=== PATIENT | male | born 1935 | race Caucasian/White ===

== ENCOUNTER 2020-08-30 13:02 | Inpatient (IN) | payer OTHER ==
[~2020-08-30] VITALS: Ht 182.9 cm; Wt 95.3 kg
[2020-08-30] MEDS ORDERED: SODIUM CHLORIDE 0.9% 1,000 ML IV ONE (13:45)
[2020-08-30] MEDS ORDERED: cefTRIAXone 1GM/50ML D5W 50 ML IV ONE (15:45)
[2020-08-30] MEDS ORDERED: AZITHROMYCIN 500MG/ 250ML 250 ML IV ONE (15:45)
[2020-08-30 15:49] LABS: Basophils # (auto) 0 10 ^3/uL (0-0.2); Basophils % (auto) 0.2 % (0.0-2.0); Eosinophils # (auto) 0 10 ^3/uL (0-0.8); Hematocrit 39.8 % (41.0-53.0); Hemoglobin 13.5 g/dL (13.5-17.5); Lymphocytes # (auto) 1.5 10 ^3/uL (0.4-5.4); Lymphocytes % (auto) 33.3 % (10.0-50.0); Mean Corpuscular Hemoglobin 30.7 pg (28.0-32.0); Mean Corpuscular Volume 90.2 fL (80.0-100.0); Monocytes # (auto) 0.3 10 ^3/uL (0-1.3); Monocytes % (auto) 6.6 % (0.0-12.0); Neutrophils # (auto) 2.7 10 ^3/uL (1.6-8.6); Neutrophils % (auto) 59.9 % (37.0-80.0); Nucleated Red Blood Cells % 0.1 %; Platelet Count (auto) 126 10^3/uL (140-450); Red Blood Cells 4.41 10^6/uL (4.5-5.90); Red Cell Distribution Width 13.9 % (11.8-14.3); White Blood Cell 4.4 10^3/uL (4.4-10.8)
[2020-08-30 16:10] LABS: Chloride 98 mmol/L (98-107); Sodium 134 mmol/L (136-145)
[2020-08-30 16:14] LABS: Alanine Aminotransferase 43 U/L (16-61); Albumin 2.9 g/dL (3.4-5.0); Anion Gap 7 (5-15); BUN/Creatinine Ratio 17.9; Blood Urea Nitrogen 21 mg/dL (7-18); Calcium 7.7 mg/dL (8.5-10.1); Carbon Dioxide 29 mmol/L (21-32); GFR African American 77 mL/min; GFR Non-African American 63 mL/min; Glucose 101 mg/dL (74-106)
[2020-08-30 16:29] LABS: Alkaline Phosphatase 63 U/L (45-117); Aspartate Aminotransferase 47 U/L (15-37); Bilirubin, Total 0.6 mg/dL (0.2-1.0); Total Protein 6.6 g/dL (6.4-8.2)
[2020-08-30] MEDS ORDERED: POTASSIUM EFFERVESENT TAB 25 MEQ PO ONE ×2 (17:15→21:30)
[2020-08-30] MEDS ORDERED: NITROGLYCERIN 0.4 MG SL TAB SL PRN (19:15)
[2020-08-30] MEDS ORDERED: MORPHINE SULF INJ 2 MG/ML SYRINGE 1ML IV PRN ×2 (19:15→19:45)
[2020-08-30] MEDS ORDERED: SODIUM CHLORIDE 0.9% 1,000 ML IV SCH (19:45)
[2020-08-30] MEDS ORDERED: LABETALOL HCL 5 MG/ML ML 20ML VIAL IV PRN (19:45)
[2020-08-30] MEDS: SODIUM CHLORIDE 0.9% 1,000 ML IV SCH (19:45)
[2020-08-30] MEDS ORDERED: ONDANSETRON HCL 4 MG/2 ML VIAL IV PRN (19:45)
[2020-08-30] MEDS ORDERED: ACETAMINOPHEN 500 MG TAB PO PRN (19:45)
[2020-08-30] MEDS ORDERED: LACTULOSE 20Gm/30ML SOLN PO PRN (19:45)
[2020-08-30] MEDS ORDERED: traMADol HCL 50 MG TAB PO PRN (19:45)
[2020-08-30] MEDS: FAMOTIDINE 20 MG TAB PO SCH (22:04)
[2020-08-30] MEDS: BUDESONIDE (INHALATION) 180 MCG IH IN SCH (22:28)
[2020-08-30] MEDS: ALBUTEROL SULF HFA 90MCG INH 200DOSE IN SCH (22:28)
[2020-08-30 23:20] VITALS: BP 158/83
[2020-08-30 23:20] LABS: Urine Bacteria NONE SEEN /hpf (None Seen); Urine Blood Negative /uL (Negative); Urine Mucus FEW (None Seen); Urine Specific Gravity 1.022 (1.001-1.035); Urine WBC 2 /hpf (0 - 3)
[2020-08-31] MEDS: ALBUTEROL SULF HFA 90MCG INH 200DOSE IN SCH ×3 (06:00→22:15)
--- NOTE | 2020-08-31 08:20 | NUR ---
Telemetry admit from ER SARINADAVID admitted to Telemetry unit after SBAR received. Patient oriented to VINICIO HASTINGS,RN primary RN,[facility] unit, 244room,4 bed, and unit policies regarding patient care and visiting hours. Patient now on continuous telemetry monitoring, tele box #[id number] and telemetry reading on arrival to unit is SR 80's. Patient placed on bedside oxygen, weighed by bedscale and encouraged to call if they need something. All questions and concerns addressed, patient verbalized understanding. Note:
[2020-08-31 09:00] VITALS: BP 137/75
--- NOTE | 2020-08-31 09:00 | NUR ---
Patient stated he takes blood pressure medication but does not know name or dose, per patient he has noone who could bring in home meds.
[2020-08-31] MEDS ORDERED: ENOXAPARIN SOD 40 MG/0.4 ML SYRINGE SC SCH (10:00)
[2020-08-31] MEDS: BUDESONIDE (INHALATION) 180 MCG IH IN SCH ×3 (10:03→22:15)
[2020-08-31] MEDS: SODIUM CHLORIDE 0.9% 1,000 ML IV SCH (10:11)
[2020-08-31] MEDS: DexAMETHasone SOD PHOS 10MG/1ML VIAL INJ IV SCH (10:14)
[2020-08-31] MEDS: ENOXAPARIN SOD 40 MG/0.4 ML SYRINGE SC SCH (10:14)
[2020-08-31] MEDS: ASCORBIC ACID 1,000 MG TAB PO SCH (10:15)
[2020-08-31] MEDS: ZINC SULFATE 220mg CAP or TAB PO SCH (10:15)
[2020-08-31] MEDS: CHOLECALCIFEROL (VITD3) 2,000 UNIT CAP PO SCH (10:15)
[2020-08-31] MEDS: ASPirin 81 mg TAB PO SCH (10:15)
[2020-08-31 11:47] LABS: Albumin 2.6 g/dL (3.4-5.0); Calcium 7.8 mg/dL (8.5-10.1); Potassium 3.5 mmol/L (3.5-5.1)
[2020-08-31 11:52] LABS: BUN/Creatinine Ratio 18.1; Bilirubin, Total 0.9 mg/dL (0.2-1.0)
[2020-08-31] MEDS: levoFLOXacin 500MG 100 ML IV SCH (12:00)
[2020-08-31] MEDS ORDERED: THIAMINE HCL 100 MG TAB PO ONE (12:45)
[2020-08-31 12:51] VITALS: BP 137/77
[2020-08-31 16:44] VITALS: BP 157/81
[2020-08-31] MEDS ORDERED: REMDESIVIR 200 MG in NS 210ml LOADING DOSE ADULT IV ONE (18:00)
--- NOTE | 2020-08-31 18:40 | NUR ---
PRE-REMDESIVIR V/S 156/87 B/P 77HR 97% 97.8 TEMP 17 RR
--- NOTE | 2020-08-31 18:55 | NUR ---
REMDESIVIR V/S 146/94 B/P 83HR 96% 98.0 TEMP 17 RR NO S/S OF DISTRESS NOTED
--- NOTE | 2020-08-31 19:00 | NUR ---
REMDESIVIR IS STILL RUNNING POST V/S ENDORSED TO YAKOV BOLES
--- NOTE | 2020-08-31 21:26 | NUR ---
PT RINSED OUT HIS MOUTH POST PULMICORT Addendum: 08/31/20 at 2200 by PAULINA FARIAS RT Amended: Links added.
[2020-08-31 22:00] VITALS: BP 157/85
[2020-08-31] MEDS ORDERED: ASCORBIC ACID 500 MG TAB PO SCH (22:00)
[2020-08-31] MEDS: FAMOTIDINE 20 MG TAB PO SCH (22:40)
[2020-09-01 05:00] VITALS: BP 157/81
[2020-09-01] MEDS: BUDESONIDE (INHALATION) 180 MCG IH IN SCH ×3 (06:45→21:32)
[2020-09-01] MEDS: ALBUTEROL SULF HFA 90MCG INH 200DOSE IN SCH ×3 (06:45→21:32)
[2020-09-01 07:27] LABS: Potassium 3.6 mmol/L (3.5-5.1)
[2020-09-01 07:45] LABS: Albumin 2.6 g/dL (3.4-5.0); BUN/Creatinine Ratio 19.4; Bilirubin, Total 0.6 mg/dL (0.2-1.0); Calcium 8.1 mg/dL (8.5-10.1); Total Protein 6.5 g/dL (6.4-8.2)
[2020-09-01 09:00] VITALS: BP 155/85
[2020-09-01] MEDS ORDERED: LOSA-39 PO (09:32)
[2020-09-01] MEDS ORDERED: METO-159 PO (09:32)
[2020-09-01] MEDS ORDERED: HYDR25TA4 PO (09:32)
[2020-09-01] MEDS ORDERED: NICA30CA PO (09:32)
[2020-09-01] MEDS: levoFLOXacin 500MG 100 ML IV SCH (09:57)
[2020-09-01] MEDS: ASPirin 81 mg TAB PO SCH (09:58)
[2020-09-01] MEDS: ENOXAPARIN SOD 40 MG/0.4 ML SYRINGE SC SCH (09:59)
[2020-09-01] MEDS: ZINC SULFATE 220mg CAP or TAB PO SCH (09:59)
[2020-09-01] MEDS: CHOLECALCIFEROL (VITD3) 2,000 UNIT CAP PO SCH (09:59)
[2020-09-01] MEDS: DexAMETHasone SOD PHOS 10MG/1ML VIAL INJ IV SCH (09:59)
[2020-09-01] MEDS: ASCORBIC ACID 1,000 MG TAB PO SCH (09:59)
[2020-09-01] MEDS ORDERED: THIAMINE HCL 100 MG TAB PO SCH (10:00)
[2020-09-01] MEDS ORDERED: LOSARTAN POTASSIUM 50 MG TAB PO ONE (11:15)
[2020-09-01] MEDS ORDERED: METOPROLOL SUCCINATE XL 50 MG TAB PO ONE (11:15)
[2020-09-01 13:00] VITALS: BP 142/90
[2020-09-01 17:00] VITALS: BP 142/77
[2020-09-01] MEDS ORDERED: REMDESIVIR 100mg in NS 230ml DAILYx4DAYS (NO VENT) IV SCH (17:00)
--- NOTE | 2020-09-01 17:26 | NUR ---
REMDESIVIR VITALS 137/85 B/P 75 HR 96% 97.9 TEMP 20 RR
--- NOTE | 2020-09-01 17:41 | NUR ---
REMDESIVIR VITALS 83 HR 95% 150/80 TEMP 97.9 18 RR NO S/S OF DISTRESS NOTED
--- NOTE | 2020-09-01 18:50 | NUR ---
POST REMDESIVIR VITALS 154/8 95% 84HR 18 RR TEMP 98.0 NO S/S OF DISTRESS NOTED
--- NOTE | 2020-09-01 19:30 | NUR ---
Opening Shift Note Assumed care of patient, awake and alert. No S/S of distress/SOB or pain. Instructed on POC and to call for assist PRN, will continue to monitor for changes Q1hr and PRN.
--- NOTE | 2020-09-01 19:51 | NUR ---
1 hour post remdesivir 144/69 bp hr 87 95% 17 rr 98.1 temp no S/S of distress noted.
[2020-09-01 22:00] VITALS: BP 152/83
[2020-09-01] MEDS: FAMOTIDINE 20 MG TAB PO SCH (22:00)
[2020-09-02 05:00] VITALS: BP 179/93
[2020-09-02] MEDS: ALBUTEROL SULF HFA 90MCG INH 200DOSE IN SCH (07:05)
[2020-09-02] MEDS: BUDESONIDE (INHALATION) 180 MCG IH IN SCH (07:05)
[2020-09-02 08:00] LABS: Potassium 4.2 mmol/L (3.5-5.1)
[2020-09-02 08:08] LABS: Albumin 2.7 g/dL (3.4-5.0); BUN/Creatinine Ratio 21.8; Bilirubin, Total 0.6 mg/dL (0.2-1.0); Calcium 8.3 mg/dL (8.5-10.1); Total Protein 6.2 g/dL (6.4-8.2)
[2020-09-02 09:00] VITALS: BP 146/86
--- NOTE | 2020-09-02 09:30 | NUR ---
DOCTOR ADAM AT BEDSIDE DISCUSSING POC, PATIENT STATED HE WANTED TO GO HOME TODAY. DOCTOR ADAM AND PATIENT INFORMED THAT PATIENT DID NOT COMPLETE FULL COURSE OF REMDESIVIR, PER PATIENT HE STATED HE DIDNT WANT TO COMPLETE COURSE AND WANTED TO GO HOME AND THAT HE FELT FINE. PATIENT SATURATION ON ROOM AIR WAS 95% NO S/S OF DISTRESS NOTED. DOCTOR ADAM DISCUSSED D/C WITH PATIENT, PATIENT VERBALIZED UNDERSTANDING AND AGREE WITH D/C.
[2020-09-02] MEDS ORDERED: LOSARTAN POTASSIUM 50 MG TAB PO SCH (10:00)
[2020-09-02] MEDS ORDERED: METOPROLOL SUCCINATE XL 50 MG TAB PO SCH (10:00)
[2020-09-02] MEDS: ASPirin 81 mg TAB PO SCH (10:21)
[2020-09-02] MEDS: ENOXAPARIN SOD 40 MG/0.4 ML SYRINGE SC SCH (10:22)
[2020-09-02] MEDS: ZINC SULFATE 220mg CAP or TAB PO SCH (10:22)
[2020-09-02] MEDS: levoFLOXacin 500MG 100 ML IV SCH (10:22)
[2020-09-02] MEDS: CHOLECALCIFEROL (VITD3) 2,000 UNIT CAP PO SCH (10:23)
[2020-09-02] MEDS: ASCORBIC ACID 1,000 MG TAB PO SCH (10:26)
--- NOTE | 2020-09-02 10:52 | NUR ---
WOUND CARE NOTE: Wound care in to see patient per wound care request regarding Rt ankle wound that are noted present on admission. Bedside nurse took photograph of patient's wound upon admission for reference. Patient is 85 years old male with admitting diagnosis of Bilateral Pna with CoVid. Per patient's nurse, ELVI Griffin, patient had removal of skin growth to Rt ankle, 1x1cm wound is clean and dry with pink surrounding skin,left open to air. ELVI Griffin reported that patient to be discharge shortly. No further wound care monitoring needed at this time. RECOMMENDATION: Reconsult for active wound, pressure injury, low Satnam score of 12 and below. Addendum: 09/02/20 at 1426 by Juliet Charlton RN Amended: Links added.
[2020-09-02] MEDS: DexAMETHasone SOD PHOS 10MG/1ML VIAL INJ IV SCH (11:45)
[2020-09-02 13:00] VITALS: BP 155/93
--- NOTE | 2020-09-02 14:10 | NUR ---
Discharge instructions given as ordered. Encourage to follow up with PMD as instructed. All questions and concerns addressed. Patient verbalized understanding. Medication reconciliation form completed and copy given to patient. Prescriptions handed to patient. IV removed with catheter intact, pressure dressing applied. Telemetry unit returned to ICU. Patient taken to vehicle via wheelchair with all personal belongings, accompanied by staff. Family member waiting in front lobby for transportation home. No distress noted at time of departure.
== END 2020-09-02 14:10 | disposition home or self-care (01) | DRG 177 ==
LOC: ER 13:02 → EDBD 13:02 → TELE 13:03 → TELE-E-ADS 08-31 09:02
PROVIDERS: ADMIT Internal Medicine; ATTEND Internal Medicine Geriatric Medicine
PROC: XW033E5 Introduction of Remdesivir Anti-infective into Peripheral Vein, Percutaneous Approach, New Technology Group 5 (ICD-10-PCS; principal; 2020-09-01)
DX: U07.1 COVID-19 (principal); J12.89 Other viral pneumonia; J96.01 Acute respiratory failure with hypoxia; E87.1 Hypo-osmolality and hyponatremia; D69.6 Thrombocytopenia, unspecified; E87.6 Hypokalemia; I10 Essential (primary) hypertension
CPT/HCPCS: 36415; 70450; 71045; 80053; 81001; 82728; 82962; 84484; 85025; 85379; 86141; 87426; 94640; 96365; 96366; 96367; 96372; 96375; G0378; J0696; J1100; J1956